=== PATIENT | female | born 1985 | race Caucasian/White ===

== ENCOUNTER 2016-06-23 15:57 | Emergency (ER) | payer OTHER ==
--- NOTE | 2016-06-23 16:52 | PD ---
HPI Travel History International Travel<30 Days: No Contact w/Intl Traveler<30Days: No Known Affected Area: No History of Present Illness HPI This patient is a 31-year-old 1 para 0 EDC is June 28, 2016 presently 39 weeks and 2 days she presents with chief complaint of possible rupture of membranes have an occasional contraction no nothing regular care with Dr. 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 Alert oriented 3 and cooperative in no acute distress CARDIOVASCULAR: Regular rate and rhythm without murmurs, gallops, or rubs. RESPIRATORY: Breath sounds equal bilaterally. No accessory muscle use. ABDOMEN/GI: Abdomen soft, non-tender, bowel sounds present, no rebound, no guarding gravid term estimated weight 7 pounds Gravid to [-] weeks size term Fundal Height: [-] GENITOURINARY: Speculum exam is done no fluid in the vagina no blood no fluid on Valsalva amnisure is negative External Genitalia: intact and normal in appearance BUS glands: [-] Cervix: [-] Dilatation: [-] Grossly closed Effacement: [-] Station: [-] Presentation: [-] Membranes: [intact Uterine Contractions: [-]0 FHT's: Category: [-] 1 Baseline: [-] 140 Reactive: [-]+ Variability: [-] Moderate hqcn-kz-qeqs variability Decels: [-] 0 EXTREMITIES: No cyanosis or edema.2+ NEUROLOGICAL: Awake and alert. Motor and sensory grossly within normal limits. Five out of 5 muscle strength in all muscle groups. Normal speech. Data Data Vital Signs Reviewed: Yes (blood pressures 122/77 pulse is 88 she is afebrile) Labs Bedside ultrasound is done the amniotic fluid index is 19.45 MDM Medical Record Reviewed: No Interpretation(s) 31-year-old at 39 weeks and 2 days No clinical evidence of ruptured membranes Category 1 tracing Positive group B strep Plan Patient has been adequately monitor Discharge home By mouth fluid hydration kick count Keep appointment with Dr. Hartman on Sunday Diagnosis Diagnosis: Primary Impression: Intact amniotic membranes during in third trimester Additional Impressions: 39 weeks gestation of Positive testing for group B Streptococcus Disposition: 01 DISCHARGE HOME Condition: Stable Chelsea Mcdonnell MD Jun 23, 2016 16:52
== END 2016-06-23 16:58 | disposition home or self-care (01) ==
LOC: HOBED 15:57
DX: O98.813 Other maternal infectious and parasitic diseases complicating pregnancy, third trimester (principal)
CPT/HCPCS: 59025; 76815; 84112

== ENCOUNTER 2016-07-04 19:55 | Inpatient (IN) | payer OTHER ==
[~2016-07-04] VITALS: Ht 160 cm; Wt 63.5 kg
[2016-07-04] MEDS ORDERED: NS 1000 ML XX PRN (21:15)
[2016-07-04] MEDS ORDERED: DINOPROSTONE 10 MG INSERT-LEAVE FOR 12 HOURS VAGINAL ONE (21:15)
[2016-07-04] MEDS: LACTATED RINGER'S 1000 ML INJ 1,000 ML IV SCH (21:33)
[2016-07-04] MEDS ORDERED: ONDANSETRON HCL 4 MG/2 ML VIAL IV PRN (21:45)
[2016-07-04] MEDS ORDERED: VANCOMYCIN 1,000 MG/NS 250 ML IV SCH ×2 (21:45)
[2016-07-04] MEDS ORDERED: CITRIC ACID-SODIUM CITRATE LIQ 30 ML UDC PO SCH (21:45)
[2016-07-04] MEDS ORDERED: LIDOCAINE HCL 1% 50 ML VIAL I-DERMAL PRN (21:45)
[2016-07-04] MEDS ORDERED: OXYTOCIN 30 UNITS 500ML PREMIX IV ONE (21:45)
[2016-07-04] MEDS ORDERED: NS 1000 ML IV PRN (21:45)
[2016-07-04] MEDS ORDERED: NS 500 ML BOLUS IV PRN (21:45)
[2016-07-04] MEDS ORDERED: LACTATED RINGER'S 1000 ML BOLUS IV PRN (21:45)
[2016-07-04] MEDS ORDERED: MINERAL OIL 10 ML VIAL TOP PRN (21:45)
[2016-07-04] MEDS ORDERED: LIDOCAINE HCL 1% 50 ML VIAL INFIL PRN (21:45)
[2016-07-04 22:27] VITALS: BP 110/76; PULSE 80
[2016-07-04 22:30] VITALS: RESP 18
[2016-07-04 22:54] LABS: AUTOMATED NEUTROPHIL # 5.9 TH/MM3 (1.8-7.7); BASOPHIL # 0.1 TH/MM3 (0-0.2); BASOPHIL % 0.6 % (0.0-2.0); EOSINOPHIL # 0.1 TH/MM3 (0-0.4); EOSINOPHIL % 1.2 % (0.0-4.0); HEMATOCRIT 36.8 % (35.0-46.0); HEMO FLAGS DIFF FINAL; LYMPH % 20.4 % (9.0-44.0); LYMPHOCYTE # 1.7 TH/MM3 (1.0-4.8); MEAN CELL VOLUME 95.4 FL (80.0-100.0); MEAN CORPUSCULAR HEMOGLOBIN 33.2 PG (27.0-34.0); MEAN CORPUSCULAR HGB CONC 34.8 % (32.0-36.0); MONO % 6.5 % (0.0-8.0); NEUT % 71.3 % (16.0-70.0); PLATELET COUNT 163 TH/MM3 (150-450); RED BLOOD COUNT 3.85 MIL/MM3 (4.00-5.30); RED CELL DISTRIBUTION WIDTH 12.6 % (11.6-17.2); WHITE BLOOD COUNT 8.4 TH/MM3 (4.0-11.0)
[2016-07-04 23:11] LABS: BACTERIA, URINE OCC /hpf; BLOOD, URINE TRACE (NEG); COMMENT (UR) CULT NOT INDICATED; CULTURE IF INDICATED CULT NOT INDICATED; GLUCOSE,URINE NEG (NEG); KETONE, URINE TRACE mg/dL (NEG); MUCUS URINE FEW /lpf (OCC); NITRITE,URINE NEG (NEG); PH, URINE 5.5 (5.0-8.5); SQUAMOUS EPITHELIAL CELL URINE 2 /hpf (0-5); URINE COLOR LIGHT-YELLOW (YELLW/STRAW)
[2016-07-04 23:38] VITALS: TEMP 98.2
[2016-07-05] VITALS (19 sets, daily range): BP systolic 87–123; BP diastolic 49–88; PULSE 72–86; RESP 16–18; TEMP 98; O2SAT 97–98
[2016-07-05] MEDS ORDERED: DOCO200C (02:09)
[2016-07-05] MEDS: LACTATED RINGER'S 1000 ML IV SCH ×3 (02:31→13:45)
[2016-07-05] MEDS: VANCOMYCIN 1,000 MG/NS 250 ML IV SCH ×4 (02:31→14:00)
[2016-07-05] MEDS: LACTATED RINGER'S 1000 ML INJ 1,000 ML IV SCH ×4 (05:15→23:19)
[2016-07-05] MEDS ORDERED: OXYTOCIN 30 UNITS-500ML PREMIX 500 ML IV SCH (07:45)
[2016-07-05] MEDS ORDERED: fentaNYL 2MCG-BUPIV 0.125% INJ 100 ML ONE (08:49)
[2016-07-05] MEDS ORDERED: ePHEDrine/NS 50 MG/5 ML SYR ONE (09:05)
--- NOTE | 2016-07-05 09:25 | MH ---
cc: JOSEPH CHAMBERS M.D. DATE OF ADMISSION: 07/04/2016 REASON FOR ADMISSION Admission for induction of labor at term . PATIENT HISTORY The patient is a 31-year-old female, 1, para 0. Estimated due date is June 29, 2016 confirmed by first trimester ultrasound on December 15, 2015. [place]-rump length was consistent with 12 weeks intrauterine gestation. The patient is scheduled for elective induction at term, 41 weeks. The patient's course was unremarkable. There is a family history of hemophilia for which she was evaluated by hematology. The patient is known to be a carrier. The patient's blood type is O+. Group-B strep status is positive. Again the patient was evaluated by Dr. Drew Piedra in March 2016 and identified as a hemophilia carrier only. PAST SURGICAL HISTORY The patient denies previous surgery. ALLERGIES The patient is allergic to PENICILLIN. FAMILY HISTORY As stated above, history of hemophilia A. PHYSICAL EXAMINATION GENERAL: The patient is a well-appearing, well-nourished female in no acute stress. VITAL SIGNS: Stable. Blood pressure 128/62, pulse and respiratory rate are normal. heart tones are in the 140s. HEENT/NECK: No adenopathy or thyromegaly. Neck is supple. Full range of motion. LUNGS: Clear in all costa. CARDIAC: Regular rhythm. ABDOMEN: Gravid, full-term. CERVIX: The cervix is about 60% effaced, tight, 1 cm, -2 station, posterior, soft, vertex presentation. Estimated weight based on recent ultrasound on June 06 is 6 pounds 10 ounces. EXTREMITIES: The patient's extremities are symmetrical, full range of motion. There is no cyanosis, clubbing or edema. NEUROLOGIC: Grossly intact and nonfocal. ASSESSMENT The patient is at 41 weeks gestation, group-B strep positive with penicillin allergy. PLAN Induction of labor with Cytotec with expectant management. MD RICK Oconnor/DOMINIQUE /12:39 PM /9:22 AM
[2016-07-05] MEDS ORDERED: DO NOT ADMINISTER ANTICOAGULANTS XX PRN (10:00)
[2016-07-05] MEDS ORDERED: ePHEDrine/NS 50 MG/5 ML SYR IV PRN (10:00)
[2016-07-05] MEDS ORDERED: fentaNYL 2MCG-BUPIV 0.125% INJ 100 ML EPIDURAL SCH (10:00)
[2016-07-05] MEDS ORDERED: NO SYSTEM NARCOTICS XX PRN (10:00)
[2016-07-05] MEDS ORDERED: ACETAMINOPHEN 1000 MG/100 ML VIAL IV ONE ×2 (14:11→15:30)
[2016-07-05] MEDS ORDERED: OXYTOCIN 10 UNIT/ML AMP ONE (14:11)
[2016-07-05] MEDS ORDERED: CLINDAMYCIN PHOS 600 MG/4 ML VIAL ONE (14:28)
[2016-07-05] MEDS ORDERED: LACTATED RINGER'S 1000 ML INJ 1,000 ML IV ONE (14:30)
[2016-07-05] MEDS ORDERED: DEXAMETHASONE SOD PHOS 4 MG/ML VIAL OTHER ONE (14:30)
[2016-07-05] MEDS ORDERED: CLINDAMYCIN 600 MG/NS 100 ML IV ONE ×2 (14:30)
--- NOTE | 2016-07-05 15:18 | PD.OB.DELI ---
Procedure Note Section Procedure Performed by Jac Hartman Procedure: Primary Low Transverse Sec Indication for delivery: malposition Informed consent obtained: For anesthesia, For procedure Confirmed correct: Patient, Procedure, Site, Time-out taken Anesthesia: Epidural Medication prior to procedure: As documented in eMAR Monitoring during procedure: Blood pressure monitoring, statistical technician, doppler Urinary catheter: Inserted using sterile technique, To dependent drainage Sterile preparation: Duraprep Position: Supine with wedge to right side, Supine with safety belt applied Operative Features Skin Incision: Pfannenstiel Uterine Incision: Low transverse w/knife / scissors Membranes Ruptured: Previously Presentation: Occiput anterior Delivery of : Uneventful : Male One Minute : 9 Five Minute : 9 Weight: 7# 13oz Status of infant: Viable Placenta delivered: Intact Medications: Antibiotics Procedure tolerated: Well Maternal Complications: Other (Hemophilia A carrier) Maternal Condition: Stable Condition: Stable Jac Hartman MD Jul 05, 2016 15:17
[2016-07-05] MEDS ORDERED: MORPHINE SULFATE PF 5 MG/10 ML VIAL ONE (15:21)
[2016-07-05] MEDS ORDERED: SIMETHICONE 80 MG CHEWABLE TAB PO PRN (15:30)
[2016-07-05] MEDS ORDERED: ACETAMINOPHEN 325 MG TAB PO PRN (15:30)
[2016-07-05] MEDS ORDERED: OXYTOCIN 30 UNITS-500ML PREMIX 500 ML IV ONE (15:30)
[2016-07-05] MEDS ORDERED: ONDANSETRON HCL 4 MG/2 ML VIAL IV PUSH PRN (15:30)
[2016-07-05] MEDS ORDERED: SODIUM CHLORIDE 0.9% FLUSH 5 ML FLUSH IV PRN (15:30)
[2016-07-05] MEDS ORDERED: oxyCODONE/ACETAMINOPHEN 5 MG/325 MG TAB PO PRN (15:30)
[2016-07-05] MEDS ORDERED: OXYTOCIN 30 UNITS-500ML PREMIX 500 ML ONE (17:07)
[2016-07-05] MEDS ORDERED: EPIDURAL-NO SYSTEMIC NARCOTICS XX PRN (18:15)
[2016-07-05] MEDS ORDERED: EPIDURAL-DIPHENHYDRAMINE HCL 50 MG/ML VIAL IV PUSH PRN (18:15)
[2016-07-05] MEDS ORDERED: EPIDURAL-DO NOT ADMINISTER ANTICOAGULANTS XX PRN (18:15)
[2016-07-05] MEDS ORDERED: EPIDURAL-DIPHENHYDRAMINE HCL 50 MG CAP PO PRN (18:15)
[2016-07-05] MEDS ORDERED: EPIDURAL-NALOXONE HCL 0.4 MG/ML AMP IV PRN (18:15)
[2016-07-05] MEDS ORDERED: LACTATED RINGER'S 1000 ML INJ 1,000 ML IV SCH (20:18)
[2016-07-05] MEDS ORDERED: SODIUM CHLORIDE 0.9% FLUSH 5 ML FLUSH IV SCH (21:00)
[2016-07-05] MEDS: CLINDAMYCIN INJ 600 MG in SODIUM CHLORIDE 0.9% INJ 100 ML IV SCH (23:19)
[2016-07-06] MEDS ORDERED: OXYTOCIN 30 UNITS-500ML PREMIX 500 ML IV PRN (01:30)
[2016-07-06] MEDS: VANCOMYCIN 1,000 MG/NS 250 ML IV SCH ×2 (02:00)
[2016-07-06] MEDS: CLINDAMYCIN INJ 600 MG in SODIUM CHLORIDE 0.9% INJ 100 ML IV SCH (05:16)
[2016-07-06] MEDS: IBUPROFEN 600 MG TAB PO PRN ×3 (05:25→19:51)
[2016-07-06] MEDS: DOCUSATE SODIUM 50 MG/SENNA 8.6 MG TAB PO PRN ×2 (05:25→19:57)
[2016-07-06 06:28] LABS: AUTOMATED NEUTROPHIL # 7.3 TH/MM3 (1.8-7.7); BASOPHIL % 0.3 % (0.0-2.0); EOSINOPHIL # 0.1 TH/MM3 (0-0.4); EOSINOPHIL % 0.8 % (0.0-4.0); HEMATOCRIT 32.7 % (35.0-46.0); HEMO FLAGS DIFF FINAL; LYMPH % 17.2 % (9.0-44.0); LYMPHOCYTE # 1.7 TH/MM3 (1.0-4.8); MEAN CELL VOLUME 96.3 FL (80.0-100.0); MEAN CORPUSCULAR HEMOGLOBIN 33.8 PG (27.0-34.0); MEAN CORPUSCULAR HGB CONC 35.1 % (32.0-36.0); MONO % 8.5 % (0.0-8.0); NEUT % 73.2 % (16.0-70.0); PLATELET COUNT 135 TH/MM3 (150-450); RED BLOOD COUNT 3.39 MIL/MM3 (4.00-5.30); RED CELL DISTRIBUTION WIDTH 13.2 % (11.6-17.2)
--- NOTE | 2016-07-06 08:07 | HHI.OB ---
Subjective Post Operative Day: 1 Remarks no complaints, ambulating Objective Vitals/I&O Vital Signs Date Time Temp Pulse Resp B/P Pulse Ox O2 Delivery O2 Flow Rate FiO2 07/05/16 16:45 78 17 92/56 07/05/16 16:45 98 07/05/16 16:15 75 17 91/52 97 07/05/16 16:00 76 17 87/49 07/05/16 16:00 97 07/05/16 13:09 17 07/05/16 13:01 74 102/57 07/05/16 12:36 18 07/05/16 12:30 86 103/66 07/05/16 11:45 16 07/05/16 11:30 73 109/63 07/05/16 09:45 98.0 18 07/05/16 09:40 77 123/68 07/05/16 09:35 72 109/67 07/05/16 09:32 84 123/62 07/05/16 09:30 86 Result Diagram: 07/06/16 0540 Objective Remarks GENERAL: Well-nourished, well-developed patient. CARDIOVASCULAR: Regular rate and rhythm without murmurs, gallops, or rubs. RESPIRATORY: Breath sounds equal bilaterally. No accessory muscle use. ABDOMEN/GI: Abdomen soft, non-tender, bowel sounds present. Incision: joe Clean, dry and intact. Fundus: Firm, non-tender at umbilicus. GENITOURINARY: Light to moderate bleeding. EXTREMITIES: No cyanosis or edema, non-tender, without signs of DVT. Medications and IVs Current Medications Medications (Trade) Dose Ordered Sig/Liv Route Start Time Stop Time Status Last Admin Lactated Ringer's 1,000 ml @ 125 mls/hr Q8H IV 07/04/16 21:15 07/05/16 23:19 Sodium Chloride 1,000 ml @ 0 mls/hr UNSCH PRN XX 07/04/16 21:15 Lactated Ringer's 1,000 ml @ 125 mls/hr Q8H IV 07/04/16 21:45 07/05/16 02:31 Lactated Ringer's 1,000 ml @ 3,000 mls/hr BOLUS PRN IV 07/04/16 21:45 07/05/16 09:24 Sodium Chloride 500 ml @ 1,000 mls/hr BOLUS PRN IV 07/04/16 21:45 (NS 1000 ml Inj) 1,000 ml @ 100 mls/hr Q10H PRN IV 07/04/16 21:45 (Zofran Inj) 4 mg Q6H PRN IV 07/04/16 21:45 (fentaNYL INJ) 50 mcg Q1H PRN IV PUSH 07/04/16 21:45 (fentaNYL INJ) 100 mcg Q1H PRN IV PUSH 07/04/16 21:45 Mineral Oil 10 ml 10 ml UNSCH PRN TOP 07/04/16 21:45 Vancomycin HCl 1000 mg/Sodium Chloride 250 ml @ 250 mls/hr Q12H IV 07/05/16 02:00 07/05/16 02:31 (Pitocin 30 Units-NS 500 ml Premix) 500 ml @ 0 mls/hr TITRATE IV 07/05/16 07:45 07/05/16 09:52 Miscellaneous Information No systemic narcotics to be given except... UNSCH PRN XX 07/05/16 10:00 07/06/16 09:59 Miscellaneous Information DO NOT ADMINISTER ANY ANTICOAGUL... UNSCH PRN XX 07/05/16 10:00 07/06/16 09:59 (fentaNYL 2MCG-BUPIV 0.125% INJ) 100 ml @ 0 mls/hr TITRATE EPIDURAL 07/05/16 10:00 Ephedrine Sulfate 10 mg 10 mg UNSCH PRN IV 07/05/16 10:00 07/06/16 09:59 (Lr 1000 ml Inj) 1,000 ml @ 100 mls/hr Q10H IV 07/05/16 20:18 07/06/16 16:17 (NS Flush) 2 ml BID IV 07/05/16 21:00 07/05/16 23:17 (NS Flush) 2 ml UNSCH PRN IV 07/05/16 15:30 (Mylicon Chew) 80 mg QID PRN PO 07/05/16 15:30 (Tylenol) 650 mg Q6H PRN PO 07/05/16 15:30 (Motrin) 600 mg Q6H PRN PO 07/05/16 15:30 07/06/16 05:25 (Percocet 5-325 Mg) 1 tab Q4H PRN PO 07/05/16 15:30 (Percocet 5-325 Mg) 2 tab Q4H PRN PO 07/05/16 15:30 (Cinthia-Colace) 2 tab Q12H PRN PO 07/05/16 15:30 07/06/16 05:25 (M-M-R Ii Inj) 0.5 ml ONCE ONCE SQ 07/06/16 16:00 07/06/16 16:01 (Boostrix Inj) 0.5 ml ONCE ONCE IM 07/06/16 16:00 07/06/16 16:01 (Zofran Inj) 4 mg Q6H PRN IV PUSH 07/05/16 15:30 Miscellaneous Information NO SYSTEMIC NARCOTICS TO BE GIVEN FO... UNSCH PRN XX 07/05/16 18:15 07/06/16 18:14 (Narcan Inj) 0.4 mg UNSCH PRN IV 07/05/16 18:15 07/06/16 18:14 (Benadryl Inj) 25 mg Q6H PRN IV PUSH 07/05/16 18:15 07/06/16 18:14 (Benadryl) 50 mg Q6H PRN PO 07/05/16 18:15 07/06/16 18:14 Miscellaneous Information ALL NURSING DEPARTMENTS UNSCH PRN XX 07/05/16 18:15 07/06/16 18:14 Assessment/Plan Problem List: (1) S/P primary low transverse Assessment and Plan POD #1 doing well, pt wants circ done in am, paid per office Discharge Planning routine Attending Attestation pt seen by Carly Rooney MD Jul 06, 2016 08:07
[2016-07-06 08:15] VITALS: BP 92/55; PULSE 60; RESP 16
[2016-07-06] MEDS: oxyCODONE/ACETAMINOPHEN 5 MG/325 MG TAB PO PRN ×2 (12:43→19:52)
[2016-07-06] MEDS ORDERED: MEASLES, MUMPS, RUBELLA VACCINE 0.5 ML VIAL SQ ONE (16:00)
[2016-07-06] MEDS ORDERED: DIPHTH/TETANUS/ACEL PERTUSSIS (BOOSTER) 0.5 ML VIAL/PFS IM ONE (16:00)
[2016-07-06 19:00] VITALS: BP 106/67; PULSE 73; RESP 16; TEMP 98.6
[2016-07-07] MEDS: IBUPROFEN 600 MG TAB PO PRN ×4 (06:03→22:25)
[2016-07-07] MEDS: oxyCODONE/ACETAMINOPHEN 5 MG/325 MG TAB PO PRN ×4 (06:03→22:26)
--- NOTE | 2016-07-07 08:13 | HHI.OB ---
Subjective Post Operative Day: 2 Remarks pt doing well, h/o hemophilia A carrier, will wait on FVIII level on baby before circumcision Objective Vitals/I&O Vital Signs Date Time Temp Pulse Resp B/P Pulse Ox O2 Delivery O2 Flow Rate FiO2 07/06/16 19:00 73 16 106/67 07/06/16 19:00 98.6 07/06/16 08:15 60 16 92/55 Result Diagram: 07/06/16 0540 Objective Remarks GENERAL: Well-nourished, well-developed patient. CARDIOVASCULAR: Regular rate and rhythm without murmurs, gallops, or rubs. RESPIRATORY: Breath sounds equal bilaterally. No accessory muscle use. ABDOMEN/GI: Abdomen soft, non-tender, bowel sounds present. Incision: joe Clean, dry and intact. Fundus: Firm, non-tender at umbilicus. GENITOURINARY: Light to moderate bleeding. EXTREMITIES: No cyanosis or edema, non-tender, without signs of DVT. Medications and IVs Current Medications Medications (Trade) Dose Ordered Sig/Liv Route Start Time Stop Time Status Last Admin Lactated Ringer's 1,000 ml @ 125 mls/hr Q8H IV 07/04/16 21:15 07/05/16 23:19 Sodium Chloride 1,000 ml @ 0 mls/hr UNSCH PRN XX 07/04/16 21:15 Lactated Ringer's 1,000 ml @ 125 mls/hr Q8H IV 07/04/16 21:45 07/05/16 02:31 Lactated Ringer's 1,000 ml @ 3,000 mls/hr BOLUS PRN IV 07/04/16 21:45 07/05/16 09:24 Sodium Chloride 500 ml @ 1,000 mls/hr BOLUS PRN IV 07/04/16 21:45 (NS 1000 ml Inj) 1,000 ml @ 100 mls/hr Q10H PRN IV 07/04/16 21:45 (Zofran Inj) 4 mg Q6H PRN IV 07/04/16 21:45 (fentaNYL INJ) 50 mcg Q1H PRN IV PUSH 07/04/16 21:45 (fentaNYL INJ) 100 mcg Q1H PRN IV PUSH 07/04/16 21:45 Mineral Oil 10 ml 10 ml UNSCH PRN TOP 1/17/17 21:45 Vancomycin HCl 1000 mg/Sodium Chloride 250 ml @ 250 mls/hr Q12H IV 07/05/16 02:00 07/05/16 02:31 Oxytocin 500 ml @ 0 mls/hr TITRATE IV 07/05/16 07:45 07/05/16 09:52 (fentaNYL 2MCG-BUPIV 0.125% INJ) 100 ml @ 0 mls/hr TITRATE EPIDURAL 07/05/16 10:00 (NS Flush) 2 ml BID IV 07/05/16 21:00 07/05/16 23:17 (NS Flush) 2 ml UNSCH PRN IV 07/05/16 15:30 (Mylicon Chew) 80 mg QID PRN PO 07/05/16 15:30 (Tylenol) 650 mg Q6H PRN PO 07/05/16 15:30 (Motrin) 600 mg Q6H PRN PO 07/05/16 15:30 07/07/16 06:03 (Percocet 5-325 Mg) 1 tab Q4H PRN PO 07/05/16 15:30 07/07/16 06:03 (Percocet 5-325 Mg) 2 tab Q4H PRN PO 07/05/16 15:30 (Cinthia-Colace) 2 tab Q12H PRN PO 07/05/16 15:30 07/06/16 19:57 (Zofran Inj) 4 mg Q6H PRN IV PUSH 07/05/16 15:30 Assessment/Plan Problem List: (1) S/P primary low transverse Assessment and Plan POD #2 doing well Discharge Planning routine Attending Attestation pt seen by Carly Rooney MD Jul 07, 2016 08:13
[2016-07-07 09:08] VITALS: BP 116/89; PULSE 78; RESP 16; TEMP 98.7
[2016-07-07] MEDS: DOCUSATE SODIUM 50 MG/SENNA 8.6 MG TAB PO PRN (10:41)
--- NOTE | 2016-07-07 18:37 | HHI.DCPOC ---
Discharge Care Plan Diagnosis: (1) S/P primary low transverse Your Health Problems Are: delivery Report Symptoms to Your Doctor -Temperate above 100.5 degrees -Redness, of incision or excessive or foul smelling drainage -Unusual pain or calf pain -Increased vaginal bleeding -Painful or difficulty urinating -Feelings of extreme sadness or anxiety after 2 weeks Goals to Promote Your Health * To prevent worsening of your condition and complications * To maintain your health at the optimal level Directions to Meet Your Goals Take your medications as prescribed Follow your dietary instruction Follow activity as directed Ensure plenty of rest for recovery Drink fluids for hydration Keep your appointments as scheduled Take your immunizations and boosters as scheduled If your symptoms worsen call your PCP, if no PCP go to Urgent Care Center or Emergency Room Smoking is Dangerous to Your Health. Avoid second hand smoke Call the 24-hour crisis hotline for domestic abuse at Polly Fuentes MD Jul 07, 2016 18:37
[2016-07-07] MEDS ORDERED: IBUP-232 PO (18:38)
[2016-07-07] MEDS ORDERED: SENN1TAB PO (18:38)
[2016-07-07] MEDS ORDERED: OXYC1TAB63 PO (18:38)
[2016-07-07 19:25] VITALS: TEMP 98.6
[2016-07-08] MEDS: IBUPROFEN 600 MG TAB PO PRN ×2 (04:10→11:05)
[2016-07-08] MEDS: oxyCODONE/ACETAMINOPHEN 5 MG/325 MG TAB PO PRN ×2 (04:10→09:00)
[2016-07-08] MEDS: DOCUSATE SODIUM 50 MG/SENNA 8.6 MG TAB PO PRN (04:57)
--- NOTE | 2016-07-08 06:08 | HHI.OB ---
Subjective Post Operative Day: 3 Remarks doing well. ambulating, had bm, no issues w/ urination, pain controlled on medications Objective Vitals/I&O Vital Signs Date Time Temp Pulse Resp B/P Pulse Ox O2 Delivery O2 Flow Rate FiO2 07/07/16 19:25 98.6 07/07/16 09:08 116/89 07/07/16 09:08 98.7 78 16 Result Diagram: 07/06/16 0540 Objective Remarks GENERAL: Well-nourished, well-developed patient. CARDIOVASCULAR: Regular rate and rhythm without murmurs, gallops, or rubs. RESPIRATORY: Breath sounds equal bilaterally. No accessory muscle use. ABDOMEN/GI: Abdomen soft, non-tender, bowel sounds present. Incision: joe Clean, dry and intact. Fundus: Firm, non-tender at umbilicus. GENITOURINARY: Light to moderate bleeding. EXTREMITIES: No cyanosis or edema, non-tender, without signs of DVT. Medications and IVs Current Medications Medications (Trade) Dose Ordered Sig/Liv Route Start Time Stop Time Status Last Admin Lactated Ringer's 1,000 ml @ 125 mls/hr Q8H IV 07/04/16 21:15 07/05/16 23:19 Sodium Chloride 1,000 ml @ 0 mls/hr UNSCH PRN XX 07/04/16 21:15 Lactated Ringer's 1,000 ml @ 125 mls/hr Q8H IV 07/04/16 21:45 07/05/16 02:31 Lactated Ringer's 1,000 ml @ 3,000 mls/hr BOLUS PRN IV 07/04/16 21:45 07/05/16 09:24 Sodium Chloride 500 ml @ 1,000 mls/hr BOLUS PRN IV 07/04/16 21:45 (NS 1000 ml Inj) 1,000 ml @ 100 mls/hr Q10H PRN IV 07/04/16 21:45 (Zofran Inj) 4 mg Q6H PRN IV 07/04/16 21:45 (fentaNYL INJ) 50 mcg Q1H PRN IV PUSH 07/04/16 21:45 (fentaNYL INJ) 100 mcg Q1H PRN IV PUSH 07/04/16 21:45 Mineral Oil 10 ml 10 ml UNSCH PRN TOP 07/04/16 21:45 Vancomycin HCl 1000 mg/Sodium Chloride 250 ml @ 250 mls/hr Q12H IV 07/05/16 02:00 07/05/16 02:31 Oxytocin 500 ml @ 0 mls/hr TITRATE IV 07/05/16 07:45 07/05/16 09:52 (fentaNYL 2MCG-BUPIV 0.125% INJ) 100 ml @ 0 mls/hr TITRATE EPIDURAL 07/05/16 10:00 (NS Flush) 2 ml BID IV 07/05/16 21:00 07/05/16 23:17 (NS Flush) 2 ml UNSCH PRN IV 07/05/16 15:30 (Mylicon Chew) 80 mg QID PRN PO 07/05/16 15:30 (Tylenol) 650 mg Q6H PRN PO 07/05/16 15:30 (Motrin) 600 mg Q6H PRN PO 07/05/16 15:30 07/08/16 04:10 (Percocet 5-325 Mg) 1 tab Q4H PRN PO 07/05/16 15:30 07/08/16 04:10 (Percocet 5-325 Mg) 2 tab Q4H PRN PO 07/05/16 15:30 07/07/16 14:35 (Cinthia-Colace) 2 tab Q12H PRN PO 07/05/16 15:30 07/08/16 04:57 (Zofran Inj) 4 mg Q6H PRN IV PUSH 07/05/16 15:30 Assessment/Plan Problem List: (1) S/P primary low transverse Assessment and Plan POD #3 doing well Infant will need circ in office Discharge Planning routine, today Polly Fuentes MD Jul 08, 2016 06:08
--- NOTE | 2016-07-11 17:05 | MP ---
cc: JOSEPH CHAMBERS M.D. DATE OF SURGERY 07/05/2016 PREOPERATIVE DIAGNOSES 1. Term intrauterine . 2. 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 3. Failure to progress. PROCEDURE Primary low transverse section with delivery of a viable male . POSTOPERATIVE DIAGNOSES 1. Term intrauterine . 2. 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 3. Failure to progress. SURGEON MD Devan ANESTHESIA Epidural ESTIMATED BLOOD LOSS 650 cc DRAINS Poon to gravity. OPERATIVE FINDINGS Male delivered from LOT position. Apgars were 9 at one minute and 9 at five. Baby weighed 7 pounds, 13 ounces. INDICATION FOR PROCEDURE The patient was brought in for post-dates induction. The patient progressed to about 3 cm and then developed cervical swelling and edema, did not progress beyond 3 cm after adequate uterine contractions were documented by intrauterine pressure catheter. Recommendation at that time was to proceed with operative delivery by due to cephalopelvic disproportion. PROCEDURE The patient was stable. heart rate tracing was Category I. The patient was brought back to the operative suite. With a reinforced epidural, she was placed on the operating table and prepped and draped in a standard fashion. Poon had been previously inserted under sterile technique. She had sequentials placed on her lower extremities for VTE prophylaxis. Once she was prepped and draped, a time-out was conducted and agreed by all present in the room. The patient had excellent pain control. A Pfannenstiel incision was utilized. The incision was carried just above the pubic symphysis in a slightly elliptical fashion, through the skin, down through the subcutaneous layer to the fascia. The fascia was scored in the midline, dissected sharply laterally and allowing dissection of the rectus muscle from the fascia, identifying the midline and then identifying the peritoneum and opening the peritoneum cleanly. The incision was extended. The bladder blade was placed over the pubic symphysis to protect the bladder. A transverse incision was made in the lower uterine segment with clear fluid. The was delivered head first without complication. Nuchal cord was identified x 1. The was delivered in total with good tone and cry and urinated on the field. The cord was doubly clamped and cut. The was taken to the isolette by the nurse. Cord samples were obtained for typing. The placenta was removed intact with trailing membranes. The uterus was kelsi firmly after use of Pitocin. The uterus was then closed after exploring the cavity and it was free of any retained tissue. The first layer was a running locking suture of 0 Monocryl, followed by a second imbricating suture of 0 Monocryl. The pelvis was irrigated. There was no active bleeding. Full count was made and correct. The peritoneal surfaces were then reapproximated and closed with a running suture of 2-0 Monocryl. The muscle bellies were reapproximated with interrupted suture of 2-0 Monocryl and then the fascia was closed with 0 Vicryl in a simple running fashion with good result. The subcutaneous space was examined, cleaned, dried and any small bleeders were cauterized. It was then closed, closing the subcutaneous layer with a running suture of 2-0 Monocryl. Contreras then used to close the skin edge. Dressing was applied. The final count was correct. The patient was stable. Infant was doing well. MD RICK Oconnor/SSB /4:56 PM /4:53 PM
== END 2016-07-08 12:26 | disposition home or self-care (01) | DRG 766 ==
LOC: H2EB 19:55 → H1EA 07-05 17:42
PROVIDERS: ADMIT Obstetrics & Gynecology; ATTEND Obstetrics & Gynecology
PROC: 3E0P7GC Introduction of Other Therapeutic Substance into Female Reproductive, Via Natural or Artificial Opening (ICD-10-PCS; 2016-07-04)
PROC: 10D00Z1 Extraction of Products of Conception, Low, Open Approach (ICD-10-PCS; principal; 2016-07-05)
DX: O48.0 Post-term pregnancy (principal); O62.2 Other uterine inertia; O32.8XX0 Maternal care for other malpresentation of fetus, not applicable or unspecified; O33.8 Maternal care for disproportion of other origin; O69.81X0 Labor and delivery complicated by cord around neck, without compression, not applicable or unspecified; O99.824 Streptococcus B carrier state complicating childbirth; O61.0 Failed medical induction of labor; Z37.0 Single live birth; Z3A.41 41 weeks gestation of pregnancy; Z14.01 Asymptomatic hemophilia A carrier; Z83.2 Family history of diseases of the blood and blood-forming organs and certain disorders involving the immune mechanism; Z88.0 Allergy status to penicillin
CPT/HCPCS: 59025; 81001; 85025; 86900; 86901; J0131; J1100; J2274; J2590; J3370; J7050; J7120